=== PATIENT | male | born 1990 | race Caucasian/White ===

== ENCOUNTER 2022-01-06 01:21 | Emergency (ER) | payer OTHER ==
[~2022-01-06] VITALS: Ht 188 cm; Wt 81.6 kg
[2022-01-06 01:24] VITALS: BP 141/95
--- NOTE | 2022-01-06 01:24 | NUR ---
INDERJIT PAYNE TAKEN TO CHAIR B
--- NOTE | 2022-01-06 01:53 | NUR ---
PATIENT BIB [facility] POLICE DEPT. PATIENT EXAMINED BY DR. RAINEY. PATIENT MEDICALLY CLEARED AND RELEASED IN CUSTODY IN STABLE CONDITION. ORIGINAL PRE-BOOK FORM GIVEN TO OFFICER MIRA, #[id number].
== END 2022-01-06 01:53 ==
LOC: MED 01:21
DX: Z02.89 Encounter for other administrative examinations (principal); Z98.890 Other specified postprocedural states; V89.2XXA Person injured in unspecified motor-vehicle accident, traffic, initial encounter; Y93.89 Activity, other specified; Y92.89 Other specified places as the place of occurrence of the external cause; Y99.8 Other external cause status
CPT/HCPCS: 99283